=== PATIENT | male | born 1940 | race Caucasian/White ===

== ENCOUNTER 2017-09-26 09:46 | Inpatient (IN) | payer MEDICARE, BC ==
[2017-09-26] MEDS ORDERED: SODIUM CHLORIDE 0.9% 1,000 ML IV STA ×2 (10:24→13:06)
[2017-09-26] MEDS ORDERED: RX INFO: IV CONTRAST WAS GIVEN 1 EACH MISC MISCELLANE PRN ×2 (10:24→17:47)
--- NOTE | 2017-09-26 10:26 | ED ---
General Adult HPI - General Chief complaint: Back Pain/Injury Stated complaint: Back Pain Time Seen by Provider: 09/26/17 10:14 Source: patient Mode of arrival: wheelchair Limitations: no limitations - History of Present Illness Initial comments: Patient states that about 3 months ago he was shoveling some snow when he developed pain in the mid back. He states the pain has been pretty constant. He states that it is difficult to get around because of the pain. He states that it is causing him to have a decreased appetite. Patient denies any chest pain or shortness of breath. He has no neck pain. He feels generally weak, which is nonfocal. He is ambulatory. He states that he has not been eating or drinking much recently. He states that he has lost at least 20 pounds. He has some generalized abdominal pain which is nonfocal and nonradiating. Nothing makes any of his symptoms better or worse. He has taken no medication for symptoms. - Related Data Home Medications Medication Instructions Recorded Confirmed Acetaminophen Tab [Tylenol Tab] 500 - 1,000 mg PO Q6HR PRN 09/26/17 09/26/17 Acetaminophen-Codeine 300-30mg 1 - 2 tab PO Q4-6H PRN 09/26/17 09/26/17 [Tylenol w/codeine #3] Cimetidine [Tagamet] 300 mg PO BID 09/26/17 09/26/17 Cyclobenzaprine [Flexeril] 5 mg PO TID PRN 09/26/17 09/26/17 Allergies Allergy/AdvReac Type Severity Reaction Status Date / Time Penicillins Allergy Anaphylaxis Verified 09/26/17 10:12 Review of Systems ROS Statement: Those systems with pertinent positive or pertinent negative responses have been documented in the HPI. ROS Other: All systems not noted in ROS Statement are negative. Past Medical History Past Medical History: Diabetes Mellitus History of Any Multi-Drug Resistant Organisms: None Reported Additional Past Surgical History / Comment(s): left kidney removed, dedunal ulcer Past Psychological History: No Psychological Hx Reported Smoking Status: Former smoker Past Alcohol Use History: None Reported Past Drug Use History: None Reported General Exam Limitations: no limitations General appearance: alert, cachectic Head exam: Present: atraumatic, normocephalic, normal inspection Eye exam: Present: normal appearance, PERRL, EOMI. Absent: scleral icterus, conjunctival injection, periorbital swelling ENT exam: Present: normal exam, mucous membranes moist Neck exam: Present: normal inspection. Absent: tenderness, meningismus, lymphadenopathy Respiratory exam: Present: normal lung sounds bilaterally. Absent: respiratory distress, wheezes, rales, rhonchi, stridor Cardiovascular Exam: Present: regular rate, normal rhythm, normal heart sounds. Absent: systolic murmur, diastolic murmur, rubs, gallop, clicks GI/Abdominal exam: Present: soft, normal bowel sounds. Absent: distended, tenderness, guarding, rebound, rigid Extremities exam: Present: normal inspection, full ROM, normal capillary refill. Absent: tenderness, pedal edema, joint swelling, calf tenderness Back exam: Present: normal inspection Neurological exam: Present: alert, oriented X3, CN II-XII intact Psychiatric exam: Present: normal affect, normal mood Skin exam: Present: warm, dry, intact, normal color. Absent: rash Course Vital Signs 09/26/17 09:48 Temperature 97.0 F L Pulse Rate 119 H Respiratory 18 Rate Blood Pressure 136/76 O2 Sat by Pulse 100 Oximetry EKG Findings - EKG Comments: EKG Findings:: Twelve-lead EKG shows ventricular rate 85 bpm, normal OR interval and QRS complexes, no ST elevation or depression, interpreted by me as normal sinus rhythm. Medical Decision Making - Medical Decision Making Patient presents with pain, nausea and vomiting on reevaluation. He is having decreased bowel movements as well. His workup reveals pancreatic mass, ileus, possible metastatic disease. He will be admitted to the hospital. - Lab Data Result diagrams: 09/26/17 10:40 09/26/17 10:40 Lab Results 09/26/17 09/26/17 09/26/17 Range/Units 10:40 10:40 10:40 WBC 5.1 (3.8-10.6) k/uL RBC 4.08 L (4.30-5.90) m/uL Hgb 12.0 L (13.0-17.5) gm/dL Hct 35.1 L (39.0-53.0) % MCV 86.0 (80.0-100.0) fL MCH 29.4 (25.0-35.0) pg MCHC 34.2 (31.0-37.0) g/dL RDW 12.9 (11.5-15.5) % Plt Count 279 (150-450) k/uL Neutrophils % 82 % Lymphocytes % 9 % Monocytes % 6 % Eosinophils % 2 % Basophils % 0 % Neutrophils # 4.2 (1.3-7.7) k/uL Lymphocytes # 0.4 L (1.0-4.8) k/uL Monocytes # 0.3 (0-1.0) k/uL Eosinophils # 0.1 (0-0.7) k/uL Basophils # 0.0 (0-0.2) k/uL PT 10.0 (9.0-12.0) sec INR 1.0 (<1.2) APTT 24.8 (22.0-30.0) sec Sodium 135 L (137-145) mmol/L Potassium 4.2 (3.5-5.1) mmol/L Chloride 94 L (98-107) mmol/L Carbon Dioxide 25 (22-30) mmol/L Anion Gap 16 mmol/L BUN 23 H (9-20) mg/dL Creatinine 1.21 (0.66-1.25) mg/dL Est GFR (CKD-EPI)AfAm 68 (>60 ml/min/1.73 sqM) Est GFR (CKD-EPI)NonAf 58 (>60 ml/min/1.73 sqM) Glucose 110 H (74-99) mg/dL Calcium 9.9 (8.4-10.2) mg/dL Total Bilirubin 0.6 (0.2-1.3) mg/dL AST 19 (17-59) U/L ALT 24 (21-72) U/L Alkaline Phosphatase 74 (38-126) U/L Troponin I (0.000-0.034) ng/mL Total Protein 6.7 (6.3-8.2) g/dL Albumin 4.4 (3.5-5.0) g/dL Amylase 40 (30-110) U/L Lipase 40 (23-300) U/L Urine Color Urine Appearance (Clear) Urine pH (5.0-8.0) Ur Specific [place] (1.001-1.035) Urine Protein (Negative) Urine Glucose (UA) (Negative) Urine Ketones (Negative) Urine Blood (Negative) Urine Nitrite (Negative) Urine Bilirubin (Negative) Urine Urobilinogen (<2.0) mg/dL Ur Leukocyte Esterase (Negative) Urine RBC (0-5) /hpf Urine WBC (0-5) /hpf Ur Squamous Epith Cells (0-4) /hpf 09/26/17 09/26/17 Range/Units 10:40 11:08 WBC (3.8-10.6) k/uL RBC (4.30-5.90) m/uL Hgb (13.0-17.5) gm/dL Hct (39.0-53.0) % MCV (80.0-100.0) fL MCH (25.0-35.0) pg MCHC (31.0-37.0) g/dL RDW (11.5-15.5) % Plt Count (150-450) k/uL Neutrophils % % Lymphocytes % % Monocytes % % Eosinophils % % Basophils % % Neutrophils # (1.3-7.7) k/uL Lymphocytes # (1.0-4.8) k/uL Monocytes # (0-1.0) k/uL Eosinophils # (0-0.7) k/uL Basophils # (0-0.2) k/uL PT (9.0-12.0) sec INR (<1.2) APTT (22.0-30.0) sec Sodium (137-145) mmol/L Potassium (3.5-5.1) mmol/L Chloride (98-107) mmol/L Carbon Dioxide (22-30) mmol/L Anion Gap mmol/L BUN (9-20) mg/dL Creatinine (0.66-1.25) mg/dL Est GFR (CKD-EPI)AfAm (>60 ml/min/1.73 sqM) Est GFR (CKD-EPI)NonAf (>60 ml/min/1.73 sqM) Glucose (74-99) mg/dL Calcium (8.4-10.2) mg/dL Total Bilirubin (0.2-1.3) mg/dL AST (17-59) U/L ALT (21-72) U/L Alkaline Phosphatase (38-126) U/L Troponin I <0.012 (0.000-0.034) ng/mL Total Protein (6.3-8.2) g/dL Albumin (3.5-5.0) g/dL Amylase (30-110) U/L Lipase (23-300) U/L Urine Color Light Yellow Urine Appearance Clear (Clear) Urine pH 5.5 (5.0-8.0) Ur Specific [place] 1.010 (1.001-1.035) Urine Protein Negative (Negative) Urine Glucose (UA) Negative (Negative) Urine Ketones 1+ H (Negative) Urine Blood Small H (Negative) Urine Nitrite Negative (Negative) Urine Bilirubin Negative (Negative) Urine Urobilinogen <2.0 (<2.0) mg/dL Ur Leukocyte Esterase Negative (Negative) Urine RBC 1 (0-5) /hpf Urine WBC <1 (0-5) /hpf Ur Squamous Epith Cells <1 (0-4) /hpf Disposition Clinical Impression: Abdominal mass Disposition: ADMITTED IP TO THIS HOSP Condition: Fair Is patient prescribed a controlled substance at d/c from ED?: No Referrals: Joe Lopze DO [Primary Care Provider] - 1-2 days Time of Disposition: 12:48
[2017-09-26 10:58] LABS: Basophils % (A) 0 %; Eosinophils # (A) 0.1 k/uL (0-0.7); Eosinophils % (A) 2 %; HCT 35.1 % (39.0-53.0); Lymphocytes # (A) 0.4 k/uL (1.0-4.8); Lymphocytes % (A) 9 %; MCH 29.4 pg (25.0-35.0); MCHC 34.2 g/dL (31.0-37.0); Mean Platelet Volume 6.7; Monocytes # (A) 0.3 k/uL (0-1.0); Monocytes % (A) 6 %; Neutrophils # (A) 4.2 k/uL (1.3-7.7); Neutrophils % (A) 82 %; Platelet Count 279 k/uL (150-450); RBC 4.08 m/uL (4.30-5.90); RDW 12.9 % (11.5-15.5); WBC 5.1 k/uL (3.8-10.6)
[2017-09-26 11:08] LABS: Albumin 4.4 g/dL (3.5-5.0); Calcium 9.9 mg/dL (8.4-10.2); Partial Thromboplastin Time 24.8 sec (22.0-30.0); Potassium 4.2 mmol/L (3.5-5.1); Total Bilirubin 0.6 mg/dL (0.2-1.3); Total Protein 6.7 g/dL (6.3-8.2)
[2017-09-26 11:20] LABS: Appearance,Urine Clear (Clear); Bilirubin,Urine Negative (Negative); Blood,Urine Small (Negative); Color,Urine Light Yellow; Glucose,Urine (UA) Negative (Negative); Ketones,Urine 1+ (Negative); Leukocyte Esterase,Urine Negative (Negative); Nitrite,Urine Negative (Negative); PH, Urine 5.5 (5.0-8.0); Protein,Urine Negative (Negative); RBC,Urine 1 /hpf (0-5); Squamous Epithelial Cell,Urine <1 /hpf (0-4); Urobilinogen,Urine <2.0 mg/dL (<2.0); WBC,Urine <1 /hpf (0-5)
--- NOTE | 2017-09-26 12:06 | XR ---
EXAMINATION TYPE: XR chest 2V DATE OF EXAM: 09/26/2017 COMPARISON: NONE HISTORY: Shortness of breath TECHNIQUE: Frontal and lateral views of the chest are obtained. FINDINGS: Scattered senescent parenchymal changes noted. Hyperinflation compatible with COPD. No evidence for infiltrate. No evidence for atelectasis. Heart size is stable. Mediastinal structures are stable and grossly unremarkable. No evidence for hilar prominence. Degenerative changes dorsal spine. IMPRESSION: 1. No evidence for acute pulmonary disease.
--- NOTE | 2017-09-26 12:21 | CT ---
EXAMINATION TYPE: CT abdomen pelvis w con DATE OF EXAM: 09/26/2017 COMPARISON: NONE HISTORY: Abd pain, right flank pain and back pain. Status post left nephrectomy and known duodenal ul ceration CT DLP: 250.5 mGycm Automated exposure control for dose reduction was used. TECHNIQUE: Helical acquisition of images was performed from the lung bases through the pelvis. CONTRAST: Performed without Oral Contrast and with IV Contrast, patient injected with 80 mL of Isovue 300. FINDINGS: LUNG BASES: Moderate centrilobular emphysematous changes are seen. LIVER/GB: Gallbladder is hydropic measuring up to 10.0 cm x 4.1 cm. PANCREAS: Pancreatic tail is atrophic. Centimeters within the pancreatic body there is a 2.9 x 3.0 x 3.2 cm mass with mass effect on the portal splenic confluence and concern for splenic vein thrombosis on axial series 3 image 19 and sagittal series 9 image 60. There is also pancreatic ductal dilatatio n of 4 mm of the pancreatic tail and distal body. Surrounding inflammatory fat stranding is seen on s eries 3 image 21. Pancreatic head is impressed upon by the enlarged hydropic gallbladder and poorly d efined as is the uncinate process. SPLEEN: No significant abnormality is seen. No splenomegaly as the spleen measures 9.1 cm in cranioca udal dimension. ADRENALS: Adrenal glands are unremarkable KIDNEYS: Left kidney is surgically absent with prolapsed bowel extending into the surgical bed. 1.2 c m right renal cyst is noted in addition to a too small to accurately characterize right renal lesion. No hydronephrosis. FREE AIR: No free air is visualized. URINARY BLADDER: No significant abnormality is seen. ADENOPATHY: Evaluation for adenopathy is somewhat suboptimal given close approximation of multiple b owel loops and lack of intra-abdominal fat. No gross evidence of greater than 1 cm short axis lymph n odes are seen within the abdomen or pelvis. OSSEOUS STRUCTURES: Indeterminant 5 mm lytic area seen within the left iliac bone on series 8 image 46 and series 3 image 35. Similarly on the right and small lesions are seen on series 8 image 46 thes e could be degenerative in nature. BOWEL: The bowel is nondilated. There is moderate amount retained colonic stool. Small bowel feces s ign is seen within clusters small bowel loops in the left upper quadrant indicative of stasis. IMPRESSION: 1. 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 CONSIDERATIONS ARE FOR ACUTE PANCREATITIS AND ACUTE NECROTIZING FLUID COLLECTION/P SEUDOCYST ALTHOUGH THERE IS CONCERN FOR THE ALTERNATIVE CONSIDERATION OF CYSTIC PANCREATIC METASTASIS IN THIS PATIENT WITH A HISTORY OF LEFT NEPHRECTOMY. THIS IS OF CONCERN GIVEN THE DUCTAL DILATATION O F THE PANCREATIC TAIL AND CAN INDUCE SECONDARY PANCREATITIS. PRIMARY PANCREATIC NEOPLASM IS ALSO POSS IBLE. BIOPSY COULD BE CONSIDERED PERCUTANEOUSLY OR ENDOSCOPICALLY. 2. SUBCENTIMETER INDETERMINATE LYTIC LESIONS OF THE PELVIS THAT COULD REPRESENT OSTEOBLASTIC METASTAS IS OF RENAL CELL CARCINOMA OR SIMPLY DEGENERATIVE CHANGE. 3. HYDROPIC SIZE OF THE GALLBLADDER. CORRELATE WITH SERUM LABORATORY VALUES TO EVALUATE THE NEED FOR HIDA SCAN. 4. FINDINGS FAVORING SMALL BOWEL ILEUS.
[2017-09-26] MEDS ORDERED: MORPHINE SULFATE 4 MG/ML SYRINGE IV STA (12:58)
[2017-09-26] MEDS ORDERED: HYDROcodone/APAP 5-325MG 1 EACH TAB PO PRN (13:58)
[2017-09-26] MEDS ORDERED: NALOXONE 0.4 MG/ML 1 ML VIAL IV PRN (13:58)
--- NOTE | 2017-09-26 14:04 | P.HPIM ---
History of Present Illness H&P Date: 09/26/17 Chief Complaint: Abdominal pain, fatigue and weight loss The patient is a 77-year-old male that presented to the ER with chief complaints of ongoing mid abdominal pain over the last 3 weeks, progressively worsening was initially mild but now is moderate radiating to the back. Patient initially attributed his pain Muscle spasms that began from an injury sustained from using snowblower. The patient has tried [id number] Tylenol and was recently prescribed Tylenol 3's by his PCP without any improvement. Over the last 3 weeks, patient has noted increasing loss of appetite, nausea but denies vomiting, fatigue and weakness with associated 5 pound weight loss in the last 2 weeks. He denies any subjective fevers chills or night sweats, does report nausea and intermittent constipation. The patient denies any history of cancer, or any recent history of alcohol consumption or smoking. He denies any chest pain shortness of air, syncope palpitations or lower extremity swelling The patient reports having a left sided nephrectomy in 2013 at [facility] due to atrophic nonfunctional kidney. In the ER the patient had admission labs with the serum sodium of 135, hemoglobin of [address] abdomen and pelvis indicating a cystic pancreatic body mass with pancreatic duct dilatation, findings suggesting small bowel ileus Review of Systems All other 12 point review systems negative except per HPI Past Medical History Past Medical History: Diabetes Mellitus History of Any Multi-Drug Resistant Organisms: None Reported Additional Past Surgical History / Comment(s): left kidney removed, dedunal ulcer Past Psychological History: No Psychological Hx Reported Smoking Status: Former smoker Past Alcohol Use History: None Reported Past Drug Use History: None Reported Medications and Allergies Home Medications Medication Instructions Recorded Confirmed Type Acetaminophen Tab [Tylenol Tab] 500 - 1,000 mg PO Q6HR PRN 09/26/17 09/26/17 History Acetaminophen-Codeine 300-30mg 1 - 2 tab PO Q4-6H PRN 09/26/17 09/26/17 History [Tylenol w/codeine #3] Cimetidine [Tagamet] 300 mg PO BID 09/26/17 09/26/17 History Cyclobenzaprine [Flexeril] 5 mg PO TID PRN 09/26/17 09/26/17 History Allergies Allergy/AdvReac Type Severity Reaction Status Date / Time Penicillins Allergy Anaphylaxis Verified 09/26/17 10:12 Physical Exam Vitals: Vital Signs Temp Pulse Resp BP Pulse Ox 09/26/17 13:36 99.0 F 89 20 160/63 96 09/26/17 12:53 87 20 164/76 99 09/26/17 10:53 80 20 164/84 98 09/26/17 09:48 97.0 F L 119 H 18 136/76 100 Intake and Output 09/25/17 09/26/17 09/26/17 22:59 06:59 14:59 Output Total 500 Balance -500 Output: Urine 500 Other: Weight 39.916 kg Constitutional: No acute distress, conversant, pleasant, anorexic Eyes: Anicteric sclerae, moist conjunctiva, no lid-lag, PERRLA, sunken orbits HENMT: NC/AT,Oropharynx clear, no erythema, exudates, bilateral temporal wasting Neck:Supple, FROM, no masses, or JVD, No carotid bruits; No thyromegaly Lungs: Clear to auscultation, Clear to percussion, Normal respiratory effort, no accessory muscle use Cardiovascular: Heart regular in rate and rhythm, No murmurs, gallops, or rubs no peripheral edema Abdominal: Soft tender to palpation in the midepigastrium, non distended, no guarding, no rebound or rigidity, Normoactive bowel sounds No hepatomegaly, No splenomegaly, No palpable mass No abdominal wall hernia noted Skin: Normal temperature, tone, texture, turgor, No induration No subcutaneous nodules, No rash, lesions, No ulcers Extremities:No digital cyanosis No clubbing, Pedal pulses intact and symmetrical Radial pulses intact and symmetrical Normal gait and station, No calf tenderness Psychiatric: Alert and oriented to person, place and time, Appropriate affect Intact judgement Neuro: Muscles Strength 5/5 in all 4 extremities, Sensation to light touch grossly present throughout, Cranial nerves II-XII grossly intact. No focal sensory deficits Results CBC & Chem 7: 09/26/17 10:40 09/26/17 10:40 Labs: Abnormal Lab Results - Last 24 Hours (Table) 09/26/17 09/26/17 09/26/17 Range/Units 10:40 10:40 11:08 RBC 4.08 L (4.30-5.90) m/uL Hgb 12.0 L (13.0-17.5) gm/dL Hct 35.1 L (39.0-53.0) % Lymphocytes # 0.4 L (1.0-4.8) k/uL Sodium 135 L (137-145) mmol/L Chloride 94 L (98-107) mmol/L BUN 23 H (9-20) mg/dL Glucose 110 H (74-99) mg/dL Urine Ketones 1+ H (Negative) Urine Blood Small H (Negative) Assessment and Plan (1) Pancreatic mass Current Visit: Yes Status: Acute Code(s): K86.9 - DISEASE OF PANCREAS, UNSPECIFIED SNOMED Code(s): 177263340 (2) Abdominal pain Current Visit: Yes Status: Acute Code(s): R10.9 - UNSPECIFIED ABDOMINAL PAIN SNOMED Code(s): 79069457 (3) Hypernatremia Current Visit: Yes Status: Acute Code(s): E87.0 - HYPEROSMOLALITY AND HYPERNATREMIA SNOMED Code(s): 55907206 (4) Unintentional weight loss Current Visit: Yes Status: Acute Code(s): R63.4 - ABNORMAL WEIGHT LOSS SNOMED Code(s): 004440922 Plan: Patient is admitted for abdominal pain anticipate a greater than [address] evidence of pancreatic mass concerning for primary neoplasm versus metastatic Disease. Treat supportively with IV narcotics and antiemetics and IV fluids. We'll obtain consultation with general surgery, GI and hematology. Place patient on DVT and GI prophylaxis. And continue to follow his clinical course
--- NOTE | 2017-09-26 14:32 | P.GSCN ---
History of Present Illness Consult date: 09/26/17 Reason for Consult: Cystic pancreatic mass History of present illness: This is a 77-year-old male who is admitted to the hospital complaints of epigastric and back pain. Patient awake CAT scan and was found to have a large cystic pancreatic mass. He also has a hydropic gallbladder. Patient states that over the last 3 months he's lost approximately 15 pounds. His family states that he has had complaints of back pain for the last 3 months. The patient appears to be cachectic. Past Medical History Past Medical History: Osteoarthritis (OA) Additional Past Medical History / Comment(s): Hypoglycemia-eats frequent small meals, 1983 duodenal ulcer with surgery, 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 History of Any Multi-Drug Resistant Organisms: None Reported Additional Past Surgical History / Comment(s): left kidney removed, doudenal ulcer repair, colonoscopy with 2 benign polyps removed. Additional Past Anesthesia/Blood Transfusion Reaction / Comm: Pt has been hypotensive after surgery. Smoking Status: Former smoker - Past Family History Father Family Medical History: Cancer Additional Family Medical History / Comment(s): Father had back problems from an injury. He had cancer in his lymph nodes that went to his brain. Mother Additional Family Medical History / Comment(s): Mother had mental health problems, possible schizophrenia. Medications and Allergies Home Medications Medication Instructions Recorded Confirmed Type Acetaminophen Tab [Tylenol Tab] 500 - 1,000 mg PO Q6HR PRN 09/26/17 09/26/17 History Acetaminophen-Codeine 300-30mg 1 - 2 tab PO Q4-6H PRN 09/26/17 09/26/17 History [Tylenol w/codeine #3] Cimetidine [Tagamet] 300 mg PO BID 09/26/17 09/26/17 History Cyclobenzaprine [Flexeril] 5 mg PO TID PRN 09/26/17 09/26/17 History Allergies Allergy/AdvReac Type Severity Reaction Status Date / Time Penicillins Allergy Anaphylaxis Verified 09/26/17 10:12 Surgical - Exam Vital Signs Temp Pulse Resp BP Pulse Ox 97.0 F L 119 H 18 136/76 100 09/26/17 09:48 09/26/17 09:48 09/26/17 09:48 09/26/17 09:48 09/26/17 09:48 - General moderate distress, cachectic, chronically ill - Eyes PERRL - ENT normal pinna - Neck no masses - Respiratory normal expansion - Cardiovascular Rhythm: regular - Abdomen Mild epigastric pain. There is no rebound or guarding. Abdomen: soft Results - Labs 09/26/17 10:40 09/26/17 10:40 Abnormal Lab Results - Last 24 Hours (Table) 09/26/17 09/26/17 09/26/17 Range/Units 10:40 10:40 11:08 RBC 4.08 L (4.30-5.90) m/uL Hgb 12.0 L (13.0-17.5) gm/dL Hct 35.1 L (39.0-53.0) % Lymphocytes # 0.4 L (1.0-4.8) k/uL Sodium 135 L (137-145) mmol/L Chloride 94 L (98-107) mmol/L BUN 23 H (9-20) mg/dL Glucose 110 H (74-99) mg/dL Urine Ketones 1+ H (Negative) Urine Blood Small H (Negative) Diabetes panel 09/26/17 Range/Units 10:40 Sodium 135 L (137-145) mmol/L Potassium 4.2 (3.5-5.1) mmol/L Chloride 94 L (98-107) mmol/L Carbon Dioxide 25 (22-30) mmol/L BUN 23 H (9-20) mg/dL Creatinine 1.21 (0.66-1.25) mg/dL Glucose 110 H (74-99) mg/dL Calcium 9.9 (8.4-10.2) mg/dL AST 19 (17-59) U/L ALT 24 (21-72) U/L Alkaline Phosphatase 74 (38-126) U/L Total Protein 6.7 (6.3-8.2) g/dL Albumin 4.4 (3.5-5.0) g/dL Calcium panel 09/26/17 Range/Units 10:40 Calcium 9.9 (8.4-10.2) mg/dL Albumin 4.4 (3.5-5.0) g/dL Pituitary panel 09/26/17 Range/Units 10:40 Sodium 135 L (137-145) mmol/L Potassium 4.2 (3.5-5.1) mmol/L Chloride 94 L (98-107) mmol/L Carbon Dioxide 25 (22-30) mmol/L BUN 23 H (9-20) mg/dL Creatinine 1.21 (0.66-1.25) mg/dL Glucose 110 H (74-99) mg/dL Calcium 9.9 (8.4-10.2) mg/dL Adrenal panel 09/26/17 Range/Units 10:40 Sodium 135 L (137-145) mmol/L Potassium 4.2 (3.5-5.1) mmol/L Chloride 94 L (98-107) mmol/L Carbon Dioxide 25 (22-30) mmol/L BUN 23 H (9-20) mg/dL Creatinine 1.21 (0.66-1.25) mg/dL Glucose 110 H (74-99) mg/dL Calcium 9.9 (8.4-10.2) mg/dL Total Bilirubin 0.6 (0.2-1.3) mg/dL AST 19 (17-59) U/L ALT 24 (21-72) U/L Alkaline Phosphatase 74 (38-126) U/L Total Protein 6.7 (6.3-8.2) g/dL Albumin 4.4 (3.5-5.0) g/dL - Imaging CT scan - abdomen: image reviewed (3 cm cystic pancreatic mass) Assessment and Plan Assessment: 3 cm cystic pancreatic mass. The patient's symptoms and findings are suspicious for a pancreatic tumor. The patient will need to undergo CT-guided biopsy. Patient be scheduled for interventional radiology to perform the biopsy. In the meantime he'll he provided supportive care.
[2017-09-26 14:52] VITALS: BMI 15.5
[2017-09-26] MEDS: SODIUM CHLORIDE 0.9% 1,000 ML IV SCH (16:13)
[2017-09-26] MEDS: ONDANSETRON 4 MG/2 ML VIAL IVP PRN (17:07)
--- NOTE | 2017-09-26 17:47 | P.CONS ---
History of Present Illness - Reason for Consult Consult date: 09/26/17 pancreatic mass. Intractable pain - History of Present Illness The patient is a 77-year-old white male, in good health at baseline. The patient had developed upper mid abdominal pain about 3 weeks ago. Initially this was mild and intermittent. It has progressively gotten more severe and persistent. Pain is aggravated by eating but is also present otherwise. On the patient over the last 2 weeks has noted marked increase in appetite, as well as nausea off and on. In addition he's been constipated at least for the last 3-4 days. Due to the progression of the above symptoms, he came into the emergency room. CT of the abdomen and pelvis revealed evidence of a cystic mass in the pancreatic body, and encroaching on the splenic vein with possible thrombosis of the splenic vein. In addition small bowel ileus was noted. Consult was therefore placed for further evaluation and recommendations. The patient denied any personal history of malignancy. He is a nonsmoker and quit alcohol more than 40 years ago. No history of pancreatitis. Review of Systems Constitutional: Reports anorexia, Reports chronic pain, Reports poor appetite, Reports weight loss (5-6 lbs) Eyes: denies blurred vision, denies pain Ears: deny: decreased hearing, ear discharge, earache, tinnitus Ears, nose, mouth and throat: Denies headache, Denies sore throat Cardiovascular: Reports decreased exercise tolerance Respiratory: Denies cough Gastrointestinal: Reports abdominal pain, Reports constipation, Reports loss of appetite, Reports nausea Genitourinary: Reports as per HPI Musculoskeletal: Reports muscle weakness, Denies myalgias Integumentary: Denies pruritus, Denies rash Neurological: Reports weakness, Denies numbness Psychiatric: Denies anxiety, Denies depression Endocrine: Reports fatigue, Reports weight change Hematologic/Lymphatic: Reports as per HPI Past Medical History Past Medical History: Osteoarthritis (OA) Additional Past Medical History / Comment(s): Hypoglycemia-eats frequent small meals, 1983 duodenal ulcer with surgery, 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 History of Any Multi-Drug Resistant Organisms: None Reported Additional Past Surgical History / Comment(s): left kidney removed, doudenal ulcer repair, colonoscopy with 2 benign polyps removed. Additional Past Anesthesia/Blood Transfusion Reaction / Comm: Pt has been hypotensive after surgery. Smoking Status: Former smoker - Past Family History Father Family Medical History: Cancer Additional Family Medical History / Comment(s): Father had back problems from an injury. He had cancer in his lymph nodes that went to his brain. Mother Additional Family Medical History / Comment(s): Mother had mental health problems, possible schizophrenia. Medications and Allergies Home Medications Medication Instructions Recorded Confirmed Type Acetaminophen Tab [Tylenol Tab] 500 - 1,000 mg PO Q6HR PRN 09/26/17 09/26/17 History Acetaminophen-Codeine 300-30mg 1 - 2 tab PO Q4-6H PRN 09/26/17 09/26/17 History [Tylenol w/codeine #3] Cimetidine [Tagamet] 300 mg PO BID 09/26/17 09/26/17 History Cyclobenzaprine [Flexeril] 5 mg PO TID PRN 09/26/17 09/26/17 History Allergies Allergy/AdvReac Type Severity Reaction Status Date / Time Penicillins Allergy Anaphylaxis Verified 09/26/17 10:12 Physical Exam Vitals: Vital Signs Temp Pulse Pulse Resp BP BP Pulse Ox 09/26/17 14:32 97.7 F 98 12 185/81 98 09/26/17 13:36 99.0 F 89 20 160/63 96 09/26/17 12:53 87 20 164/76 99 09/26/17 10:53 80 20 164/84 98 09/26/17 09:48 97.0 F L 119 H 18 136/76 100 Intake and Output 09/26/17 09/26/17 09/26/17 06:59 14:59 22:59 Output Total 500 Balance -500 Output: Urine 500 Other: Voiding Method Toilet Urinal # Voids 0 Weight 39.916 kg - Constitutional General appearance: no acute distress - EENT Eyes: EOMI, PERRLA ENT: hearing grossly normal, normal oropharynx - Neck Neck: no lymphadenopathy Thyroid: bilateral: normal size - Respiratory Respiratory: bilateral: CTA - Cardiovascular Rhythm: regular Heart sounds: normal: S1, S2 - Gastrointestinal General gastrointestinal: normal bowel sounds, soft Localized gastrointestinal: tender: epigastric periumbilical - Integumentary Integumentary: normal - Neurologic Neurologic: CNII-XII intact - Musculoskeletal Musculoskeletal: generalized weakness, strength equal bilaterally - Psychiatric Psychiatric: A&O x's 3, appropriate affect, intact judgment & insight Results CBC & Chem 7: 09/26/17 10:40 09/26/17 10:40 Labs: Abnormal Lab Results - Last 24 Hours (Table) 09/26/17 09/26/17 09/26/17 Range/Units 10:40 10:40 11:08 RBC 4.08 L (4.30-5.90) m/uL Hgb 12.0 L (13.0-17.5) gm/dL Hct 35.1 L (39.0-53.0) % Lymphocytes # 0.4 L (1.0-4.8) k/uL Sodium 135 L (137-145) mmol/L Chloride 94 L (98-107) mmol/L BUN 23 H (9-20) mg/dL Glucose 110 H (74-99) mg/dL Urine Ketones 1+ H (Negative) Urine Blood Small H (Negative) Chest x-ray: report reviewed CT scan - abdomen: report reviewed CT scan - pelvis: report reviewed Assessment and Plan (1) Pancreatic mass Narrative/Plan: The patient is presented with abdominal symptoms as noted. CT scan of the abdomen and pelvis showed a pancreatic mass in the body, 3.2 cm in maximal dimension. The clinical picture is highly suspicious for malignancy, with a mass encroaching on the portal splenic confluence. His abdominal pain is also suspicious for mass effect on the celiac plexus. The clinical impression, and implications were discussed in detail with him and multiple family members. CT of the abdomen and pelvis does not show any obvious metastatic disease though the exam is somewhat limited because of inflammatory changes around the pancreatic head, as well as loss of bowel. The next step would be to get a tissue diagnosis. A percutaneous biopsy has been ordered with IR. This would not be the preferred more, as this is technically quite difficult especially with dilated bowel loops and surrounding inflammation. With a cystic-type mass risk of a nondiagnostic procedure is higher. In addition, the FNA would not provide any additional information. The case was therefore discussed with the family, as well as with the admitting service. I would prefer that the patient have an endoscopic ultrasound, which would enable a tissue diagnosis, as well as local and lymph node staging. Since this is not available locally, it will be arranged by the office next week at a tertiary institution. If the patient's symptoms are controlled, this can be done as an outpatient. CT scan of the chest will be ordered for additional staging. I will also check tumor markers. Current Visit: Yes Status: Acute Code(s): K86.9 - DISEASE OF PANCREAS, UNSPECIFIED SNOMED Code(s): 776377420 (2) Abdominal pain Narrative/Plan: The patient is currently on [place] and morphine. As these are both short- acting medications, I will stop the [place] and utilize morphine. The patient noted increased constipation with Tylenol 3 and therefore [place] may be more prone to cause the same. Depending on his morphine utilization, dose will be adjusted and consideration given to adding a long-acting formulation, if needed. If patient's pain control, and side effects from pain medications are not optimal, the pain service can be consulted for a celiac plexus block Current Visit: Yes Status: Acute Code(s): R10.9 - UNSPECIFIED ABDOMINAL PAIN SNOMED Code(s): 72606352 (3) Ileus Narrative/Plan: The patient does not have evidence of marilu obstruction. The ileus is most likely due to the effect of his pain, as well as pain medications and constipation. The patient will be started on Colace. Surgery is following. I will also add Reglan twice a day to try to improve bowel motility. Current Visit: Yes Status: Acute Code(s): K56.7 - ILEUS, UNSPECIFIED SNOMED Code(s): 760495125
[2017-09-26] MEDS: MORPHINE SULFATE 4 MG/ML SYRINGE IV PRN ×2 (18:42→23:09)
[2017-09-26] MEDS: METOCLOPRAMIDE 10 MG TAB PO SCH (20:07)
[2017-09-26] MEDS: DOCUSATE 100 MG CAP PO SCH (20:07)
[2017-09-26] MEDS: FAMOTIDINE 20 MG TAB PO SCH (21:47)
[2017-09-27] MEDS: MORPHINE SULFATE 4 MG/ML SYRINGE IV PRN ×5 (02:58→23:01)
[2017-09-27 06:44] LABS: Basophils % (A) 0 %; Eosinophils # (A) 0.1 k/uL (0-0.7); Eosinophils % (A) 3 %; HCT 31.7 % (39.0-53.0); HGB 10.4 gm/dL (13.0-17.5); Lymphocytes # (A) 0.6 k/uL (1.0-4.8); Lymphocytes % (A) 12 %; MCH 29.4 pg (25.0-35.0); MCHC 32.8 g/dL (31.0-37.0); MCV 89.7 fL (80.0-100.0); Mean Platelet Volume 6.6; Monocytes # (A) 0.4 k/uL (0-1.0); Monocytes % (A) 7 %; Neutrophils # (A) 3.9 k/uL (1.3-7.7); Neutrophils % (A) 76 %; Platelet Count 253 k/uL (150-450); RBC 3.54 m/uL (4.30-5.90); RDW 13.2 % (11.5-15.5); WBC 5.2 k/uL (3.8-10.6)
[2017-09-27 07:01] LABS: Albumin 3.7 g/dL (3.5-5.0); Calcium 9.4 mg/dL (8.4-10.2); Potassium 4.2 mmol/L (3.5-5.1); Total Bilirubin 0.5 mg/dL (0.2-1.3); Total Protein 5.9 g/dL (6.3-8.2)
[2017-09-27] MEDS: ONDANSETRON 4 MG/2 ML VIAL IVP PRN (07:04)
[2017-09-27] MEDS: FAMOTIDINE 20 MG TAB PO SCH ×2 (07:46→20:20)
[2017-09-27] MEDS: ENOXAPARIN 40 MG/0.4 ML SYRINGE SQ SCH (07:46)
[2017-09-27] MEDS: METOCLOPRAMIDE 10 MG TAB PO SCH ×2 (07:47→17:40)
[2017-09-27] MEDS: DOCUSATE 100 MG CAP PO SCH ×2 (07:47→20:20)
--- NOTE | 2017-09-27 09:36 | P.PN ---
Subjective Progress Note Date: 09/27/17 Principal diagnosis: Pancreatic lesion Patient says he feels better. Less abdominal pain. No nausea or vomiting. Tolerating diet thus far. CA-19-9 did come back elevated. Oncology evaluation noted. Objective - Vital Signs Vital signs: Vital Signs Temp 97.6 F 09/27/17 04:00 Pulse 85 09/27/17 08:00 Resp 16 09/27/17 08:00 BP 155/74 09/27/17 04:00 Pulse Ox 95 09/27/17 04:00 Intake & Output 09/26/17 09/27/17 09/27/17 18:59 06:59 18:59 Output Total 500 450 Balance -500 -450 Weight 39.916 kg 39.916 kg Output: Urine 500 450 Other: Voiding Method Toilet Toilet Toilet Urinal Urinal Urinal # Voids 0 1 - Exam Abdomen: Soft, nontender, nondistended - Labs CBC & Chem 7: 09/27/17 06:22 09/27/17 06:22 Labs: Abnormal Lab Results - Last 24 Hours (Table) 09/26/17 09/26/17 09/26/17 Range/Units 10:40 10:40 10:40 RBC 4.08 L (4.30-5.90) m/uL Hgb 12.0 L (13.0-17.5) gm/dL Hct 35.1 L (39.0-53.0) % Lymphocytes # 0.4 L (1.0-4.8) k/uL Sodium 135 L (137-145) mmol/L Chloride 94 L (98-107) mmol/L BUN 23 H (9-20) mg/dL Glucose 110 H (74-99) mg/dL Total Protein (6.3-8.2) g/dL CA 19-9 Antigen 273.8 H (0.0-34.9) U/mL Urine Ketones (Negative) Urine Blood (Negative) 09/26/17 09/27/17 09/27/17 Range/Units 11:08 06:22 06:22 RBC 3.54 L (4.30-5.90) m/uL Hgb 10.4 L (13.0-17.5) gm/dL Hct 31.7 L (39.0-53.0) % Lymphocytes # 0.6 L (1.0-4.8) k/uL Sodium 135 L (137-145) mmol/L Chloride (98-107) mmol/L BUN (9-20) mg/dL Glucose 103 H (74-99) mg/dL Total Protein 5.9 L (6.3-8.2) g/dL CA 19-9 Antigen (0.0-34.9) U/mL Urine Ketones 1+ H (Negative) Urine Blood Small H (Negative) Assessment and Plan (1) Pancreatic mass Narrative/Plan: Continue advancing diet as tolerated. Agree with plans for outpatient endoscopic ultrasound. Current Visit: Yes Status: Acute Code(s): K86.9 - DISEASE OF PANCREAS, UNSPECIFIED SNOMED Code(s): 485424954
--- NOTE | 2017-09-27 12:29 | CT ---
EXAMINATION TYPE: CT chest w con DATE OF EXAM: 09/27/2017 COMPARISON: NONE HISTORY: Patient has no chest complaints at time of service. Pancreatic mass. CT DLP: 122.3 mGycm Automated exposure control for dose reduction was used. CONTRAST: CT scan of the chest is performed with IV Contrast, patient injected with 80 mL of Isovue 300. FINDINGS: There is apical scarring in both lungs, worse on the right than the left. There are underly ing changes of emphysema. There is a 5.3 mm noncalcified peripheral nodule along the major fissure on the left, best seen on image 39. No other definite parenchymal nodule is seen. There is no significant axillary, mediastinal or hilar adenopathy. There is no pleural or pericardial fluid. The heart is not enlarged. Within the abdomen, the gallbladder is distended. The remainder the visualized upper abdomen is unrem arkable. No bony lesion is seen. IMPRESSION: 1. Emphysematous change. 2. Asymmetric apical pleural thickening. 3. SOLITARY LEFT-SIDED PULMONARY NODULE. THREE-MONTH FOLLOW-UP WOULD BE SUGGESTED.
--- NOTE | 2017-09-27 13:43 | P.PN ---
Subjective Progress Note Date: 09/27/17 Principal diagnosis: Patient reported that his abdominal pain and mid back pain is fairly well controlled with the medications. He stated that sometime it get worse and manages worse it goes up to 7/10 in intensity. Patient denies radiation other than going to the back of the spine. Patient also reported that he is having some constipation although he is on docusate 100 mg twice daily which is not helping him. Patient was referred for interventional radiology procedure CT- guided biopsy of the pancreatic mass but it was suggested for patient to have endoscopic ultrasound and biopsy of the pancreatic lesion. This procedure cannot be offered at this facility so the plan is for patient and continues to improve will be transferred to higher center for this procedure. Patient also had CT thorax done today which reported as emphysema, apical pleural thickening , solitary left main nodule and three-month follow-up was recommended. Patient denies chest pain, palpitation, nausea, dizziness, deficits, fever, chills, vomiting and denies rest of the review of system. Patient reports that he is eating better and tolerating his diet better than before. Nurses reported no other issues with him. Objective - Vital Signs Vital signs: Vital Signs Temp 97.6 F 09/27/17 04:00 Pulse 85 09/27/17 08:00 Resp 16 09/27/17 08:00 BP 155/74 09/27/17 04:00 Pulse Ox 95 09/27/17 04:00 Intake & Output 09/26/17 09/27/17 09/27/17 18:59 06:59 18:59 Output Total 500 450 Balance -500 -450 Weight 39.916 kg 39.916 kg Output: Urine 500 450 Other: Voiding Method Toilet Toilet Toilet Urinal Urinal Urinal # Voids 0 1 - Constitutional General appearance: Present: cooperative, no acute distress, thin - EENT Eyes: Present: EOMI, normal appearance ENT: Present: hearing grossly normal - Neck Neck: Present: normal ROM. Absent: lymphadenopathy, rigidity, stridor, thyromegaly - Respiratory Respiratory: bilateral: CTA, diminished, negative: dullness, rales, rhonchi, wheezing, prolonged expiration, prolonged inspiration - Cardiovascular Rhythm: regular Heart sounds: normal: S1, S2 Abnormal Heart Sounds: Absent: systolic murmur, diastolic murmur, rub, S3 Gallop , S4 Gallop, click - Gastrointestinal General gastrointestinal: Present: normal bowel sounds, soft. Absent: distended , hepatomegaly, rigid - Neurologic Neurologic: Present: CNII-XII intact. Absent: focal deficits - Psychiatric Psychiatric: Present: A&O x's 3, appropriate affect, intact judgment & insight - Labs CBC & Chem 7: 09/27/17 06:22 09/27/17 06:22 Labs: Abnormal Lab Results - Last 24 Hours (Table) 09/26/17 09/27/17 09/27/17 Range/Units 10:40 06:22 06:22 RBC 3.54 L (4.30-5.90) m/uL Hgb 10.4 L (13.0-17.5) gm/dL Hct 31.7 L (39.0-53.0) % Lymphocytes # 0.6 L (1.0-4.8) k/uL Sodium 135 L (137-145) mmol/L Glucose 103 H (74-99) mg/dL Total Protein 5.9 L (6.3-8.2) g/dL CA 19-9 Antigen 273.8 H (0.0-34.9) U/mL - Imaging and Cardiology CT scan - abdomen: report reviewed, image reviewed CT scan - chest: report reviewed Assessment and Plan (1) Constipation Current Visit: Yes Status: Acute Priority: High Code(s): K59.00 - CONSTIPATION, UNSPECIFIED SNOMED Code(s): 27815175 (2) Abdominal mass Current Visit: Yes Status: Acute Priority: High Code(s): R19.00 - INTRA- ABD AND PELVIC SWELLING, MASS AND LUMP, UNSP SITE SNOMED Code(s): 240607951 (3) Abdominal pain Current Visit: Yes Status: Acute Priority: High Code(s): R10.9 - UNSPECIFIED ABDOMINAL PAIN SNOMED Code(s): 31238323 (4) Hypernatremia Current Visit: Yes Status: Acute Priority: Medium Code(s): E87.0 - HYPEROSMOLALITY AND HYPERNATREMIA SNOMED Code(s): 74470169 (5) Ileus Current Visit: Yes Status: Acute Priority: High Code(s): K56.7 - ILEUS, UNSPECIFIED SNOMED Code(s): 177742592 (6) Pancreatic mass Current Visit: Yes Status: Acute Priority: High Code(s): K86.9 - DISEASE OF PANCREAS, UNSPECIFIED SNOMED Code(s): 340983396 (7) Unintentional weight loss Current Visit: Yes Status: Acute Priority: High Code(s): R63.4 - ABNORMAL WEIGHT LOSS SNOMED Code(s): 236175107 Plan: Patient's Colace will be discontinued and he will be started on senna-S two tablets at night-time with full glass of water. This medication will be held for loose stools. Patient was encouraged to drink and sure and complete his meal every day and every meal supply to improve his nutritional status. Patient is aware of that he might be needing transfer to health centers for endoscopic ultrasound and biopsy of the pancreatic mass. Patient been will be managed with continuation of as needed IV morphine and I will add MS Contin 15 mg twice daily as a baseline pain management. Patient will be continued on rest of the management for his chronic stable medical problems.
[2017-09-27] MEDS: SODIUM CHLORIDE 0.9% 1,000 ML IV SCH (15:21)
[2017-09-28] MEDS: MORPHINE SULFATE 4 MG/ML SYRINGE IV PRN ×2 (03:27→08:26)
[2017-09-28] MEDS: METOCLOPRAMIDE 10 MG TAB PO SCH ×2 (08:27→17:05)
[2017-09-28] MEDS: ENOXAPARIN 40 MG/0.4 ML SYRINGE SQ SCH (08:27)
[2017-09-28] MEDS: FAMOTIDINE 20 MG TAB PO SCH ×2 (08:27→20:29)
[2017-09-28] MEDS: DOCUSATE 100 MG CAP PO SCH (08:27)
[2017-09-28 09:42] LABS: HCT 29.9 % (39.0-53.0); HGB 9.8 gm/dL (13.0-17.5); MCH 29.4 pg (25.0-35.0); MCHC 32.8 g/dL (31.0-37.0); MCV 89.7 fL (80.0-100.0); Mean Platelet Volume 7.5; Platelet Count 186 k/uL (150-450); RBC 3.34 m/uL (4.30-5.90); RDW 13.1 % (11.5-15.5); WBC 5.3 k/uL (3.8-10.6)
[2017-09-28 09:59] LABS: Calcium 9.2 mg/dL (8.4-10.2); Potassium 4.1 mmol/L (3.5-5.1)
--- NOTE | 2017-09-28 10:04 | P.PN ---
Subjective Progress Note Date: 09/28/17 Principal diagnosis: Pancreatic lesion Patient doing well. Tolerating diet. Denies abdominal pain. Objective - Vital Signs Vital signs: Vital Signs Temp 98.9 F 09/28/17 06:17 Pulse 101 H 09/28/17 06:17 Resp 16 09/28/17 06:17 BP 135/60 09/28/17 06:17 Pulse Ox 96 09/28/17 06:17 Intake & Output 09/27/17 09/28/17 09/28/17 18:59 06:59 18:59 Intake Total 600 175 Output Total 500 Balance 600 -325 Weight 39.916 kg Intake: Intake, IV Titration 600 175 Amount Sodium Chloride 0.9% 1, 175 000 ml @ 50 mls/hr IV . Q20H CYRIL Rx#:[id number] Sodium Chloride 0.9% 1, 600 000 ml @ 75 mls/hr IV . [id number] STA Rx#:[id number] Output: Urine 500 Other: Voiding Method Toilet Toilet Toilet Urinal Urinal Urinal # Voids 1 - Exam Abdomen: Soft, nontender, nondistended - Labs CBC & Chem 7: 09/28/17 09:31 09/27/17 06:22 Labs: Abnormal Lab Results - Last 24 Hours (Table) 09/28/17 Range/Units 09:31 RBC 3.34 L (4.30-5.90) m/uL Hgb 9.8 L (13.0-17.5) gm/dL Hct 29.9 L (39.0-53.0) % Assessment and Plan (1) Pancreatic mass Narrative/Plan: Continue encouraging oral intake. Await oncology plans for outpatient endoscopic ultrasound. Current Visit: Yes Status: Acute Priority: High Code(s): K86.9 - DISEASE OF PANCREAS, UNSPECIFIED SNOMED Code(s): 159866644
--- NOTE | 2017-09-28 11:39 | P.PN ---
Subjective Progress Note Date: 09/28/17 Principal diagnosis: Pt. reported that his abdominal pain is fairly controlled with I/V Morphine, was supposed to have oral MS Contin from last night but order didn't went through. Dr. Gonzales's recs appreciated, nurse reported that pt. is still constipated and is only taking his ENSURE supplements 50% per serving. Pt. reports no N/V, F/C, CP, Diaphoresis, Dizziness, Palpitation and denies rest of the ROS. Objective - Vital Signs Vital signs: Vital Signs Temp 98.9 F 09/28/17 06:17 Pulse 101 H 09/28/17 06:17 Resp 16 09/28/17 06:17 BP 135/60 09/28/17 06:17 Pulse Ox 96 09/28/17 06:17 Intake & Output 09/27/17 09/28/17 09/28/17 18:59 06:59 18:59 Intake Total 600 175 Output Total 500 Balance 600 -325 Weight 39.916 kg Intake: Intake, IV Titration 600 175 Amount Sodium Chloride 0.9% 1, 175 000 ml @ 50 mls/hr IV . Q20H CYRIL Rx#:[id number] Sodium Chloride 0.9% 1, 600 000 ml @ 75 mls/hr IV . [id number] STA Rx#:[id number] Output: Urine 500 Other: Voiding Method Toilet Toilet Toilet Urinal Urinal Urinal # Voids 1 - Constitutional General appearance: Present: cooperative, no acute distress, thin - EENT Eyes: Present: EOMI - Neck Neck: Present: normal ROM. Absent: lymphadenopathy, rigidity, stridor, thyromegaly - Respiratory Respiratory: bilateral: CTA, negative: diminished, dullness, rales, rhonchi, wheezing, prolonged expiration, prolonged inspiration - Cardiovascular Rhythm: regular Heart sounds: normal: S1, S2 Abnormal Heart Sounds: Absent: systolic murmur, diastolic murmur, rub, S3 Gallop , S4 Gallop, click - Peripheral pulses radial pulse Peripheral Pulses: bilateral: Normal - Gastrointestinal General gastrointestinal: Present: normal bowel sounds, scaphoid, soft. Absent : distended, rigid, tenderness - Neurologic Neurologic: Present: CNII-XII intact. Absent: focal deficits - Musculoskeletal Musculoskeletal: Present: generalized weakness, strength equal bilaterally - Psychiatric Psychiatric: Present: A&O x's 3, appropriate affect, intact judgment & insight - Labs CBC & Chem 7: 09/28/17 09:31 09/28/17 09:31 Labs: Abnormal Lab Results - Last 24 Hours (Table) 09/28/17 09/28/17 Range/Units 09:31 09:31 RBC 3.34 L (4.30-5.90) m/uL Hgb 9.8 L (13.0-17.5) gm/dL Hct 29.9 L (39.0-53.0) % Sodium 136 L (137-145) mmol/L Chloride 96 L (98-107) mmol/L Glucose 135 H (74-99) mg/dL Assessment and Plan (1) Constipation Current Visit: Yes Status: Acute Priority: High Code(s): K59.00 - CONSTIPATION, UNSPECIFIED SNOMED Code(s): 39253088 (2) Abdominal mass Current Visit: Yes Status: Acute Priority: High Code(s): R19.00 - INTRA- ABD AND PELVIC SWELLING, MASS AND LUMP, UNSP SITE SNOMED Code(s): 359714857 (3) Abdominal pain Current Visit: Yes Status: Acute Priority: High Code(s): R10.9 - UNSPECIFIED ABDOMINAL PAIN SNOMED Code(s): 90851631 (4) Hypernatremia Current Visit: Yes Status: Acute Priority: Medium Code(s): E87.0 - HYPEROSMOLALITY AND HYPERNATREMIA SNOMED Code(s): 28126777 (5) Ileus Current Visit: Yes Status: Acute Priority: High Code(s): K56.7 - ILEUS, UNSPECIFIED SNOMED Code(s): 085241295 (6) Pancreatic mass Current Visit: Yes Status: Acute Priority: High Code(s): K86.9 - DISEASE OF PANCREAS, UNSPECIFIED SNOMED Code(s): 703575082 (7) Unintentional weight loss Current Visit: Yes Status: Acute Priority: High Code(s): R63.4 - ABNORMAL WEIGHT LOSS SNOMED Code(s): 164624079 Plan: Pt's nausea is improved and fair bowel sounds with passing gases per rectum, recommend for increase oral fluid intake including ENSURE 4 cans per day, increase activity as tolerated, Senna-S BID with fluids and MS-Contin 15mg BID starting this morning and if appetite does not improves than may try MEGACE for couple of weeks. Pt's Hb. is trending down with stable Sodium levels, will check CBC in the morning and if pain better controlled with oral meds and tolerating diet well then he can be discharged home tomorrow with Dr. Gonzales f/u in 1-2 weeks to get his EUS and PANCREATIC biopsy scheduled as an out patient basis. Pt. will also need to see his PCP with-in one week continued supply of narcotic medications.
[2017-09-28] MEDS: MORPHINE SULFATE ER 15 MG TABLET PO SCH ×2 (11:42→20:29)
[2017-09-28] MEDS: SENNOSIDES-DOCUSATE SODIUM 1 EACH TAB PO SCH ×2 (11:43→20:31)
[2017-09-28] MEDS: SODIUM CHLORIDE 0.9% 1,000 ML IV SCH (17:05)
[2017-09-28] MEDS: ONDANSETRON 4 MG/2 ML VIAL IVP PRN (20:33)
[2017-09-28 23:21] VITALS: RESP 16
[2017-09-29] MEDS: MORPHINE SULFATE 4 MG/ML SYRINGE IV PRN (02:33)
[2017-09-29] MEDS: SODIUM CHLORIDE 0.9% 1,000 ML IV SCH (05:50)
[2017-09-29 07:07] LABS: Mean Platelet Volume 6.9; Platelet Count 208 k/uL (150-450)
[2017-09-29 07:12] LABS: INR 1.1 (<1.2); Prothrombin Time 10.5 sec (9.0-12.0)
[2017-09-29] MEDS: ENOXAPARIN 40 MG/0.4 ML SYRINGE SQ SCH (09:21)
[2017-09-29] MEDS: METOCLOPRAMIDE 10 MG TAB PO SCH ×2 (09:21→17:29)
[2017-09-29] MEDS: FAMOTIDINE 20 MG TAB PO SCH (09:22)
[2017-09-29] MEDS: MORPHINE SULFATE ER 15 MG TABLET PO SCH ×2 (09:23→20:55)
[2017-09-29] MEDS: SENNOSIDES-DOCUSATE SODIUM 1 EACH TAB PO SCH ×2 (09:24→20:59)
[2017-09-29] MEDS ORDERED: BISACODYL 10 MG SUPP RECTAL STA (09:25)
--- NOTE | 2017-09-29 11:36 | CDI ---
Last Revision, April 2017 Documentation Clarification Form Date: 09/29/17 1128 From: Chioma Harkins RN, CCDS Admit Date: 09/26/2017 12:49:00 PM Patient Name: Hari Gomez Visit Number: [id number] ATTENTION: The Clinical Documentation Specialists (CDI) and [facility] Coding Staff appreciate your assistance in clarifying documentation. Please respond to the clarification below the line at the bottom and electronically sign. The CDI & [facility] Coding staff will review the response and follow-up if needed. Please note: Queries are made part of the Legal Health Record. If you have any questions, please contact the author of this message via ITS. Dr. Leslie Quiñones History/Risk Factors: 5 Lb weight loss x 1 week, newly diagnosis pancreatic mass Clinical Indicators: 09/26 Surgical Consult: "moderate distress, cachectic, chronically ill." Dietary has documented "malnutrition" 09/28 Attending Progress Note: "unintentional weight loss." Patients weight is 39.9 Kg Patients height is 63 in Calculated BMI is 15.6 09/26 H&P: Skin care/assessment: "Skin: Normal temperature, tone, texture, turgor , No induration No subcutaneous nodules, No rash, lesions, No ulcers." Diagnostic tests: CT AP: pancreatic mass, hydropic gallbladder, lytic lesions in pelvis Treatments: 09/28 Attending Progress Note: recommend for increase oral fluid intake including ENSURE 4 cans per day, increase activity as tolerated, Daily weights per unit protocol Nutritional Education: Provided 09/26 and 09/29 Dietary Consult: completed 09/26 & 09/29 Possible infusion: 1 L IVF Bolus followed by 50 cc/hr Administration of supplements: Ensure clear TID In order to capture the severity of condition associated with patient BMI of 15.6, a clinical diagnoses needs to be documented by the physician. Please clarify: Protein Calorie Malnutrition, (further specify severity - Mild, Moderate, Severe ) Emaciated Cachexia Underweight Protein Calorie Malnutrition, (further specify severity - Mild, Moderate, Severe ) Other Unable to determine Please continue to document in your progress notes and discharge summary in order to capture severity of illness and risk of mortality. Include clinical findings that support your diagnosis. severe protein calorie malnutrition MTDD
--- NOTE | 2017-09-29 12:04 | XR ---
2 view Abdomen HISTORY: Follow-up ileus 2 views of the abdomen Comparison to CT abdomen pelvis 09/26/2017 Lung bases are clear. There is no evident pneumoperitoneum or bowel obstruction. Surgical clips are p resent in left the abdomen. Air-filled loops of colon are noted. No definite distention. There is a p hlebolith in the right pelvis. IMPRESSION: No significant abnormality is evident.
[2017-09-29 15:18] VITALS: TEMP 98.1
[2017-09-29] MEDS: ONDANSETRON 4 MG/2 ML VIAL IVP PRN ×2 (15:28→20:56)
--- NOTE | 2017-09-29 16:38 | P.PN ---
Progress Note - Text Progress Note Date: 09/29/17 The patient remained stable over the weekend. He has not better pain control. He is currently drinking his protein drinks. He was originally scheduled for a CT-guided biopsy however this is unchanged an endoscopic ultrasound with possible biopsy. On exam is lesser stable. His abdomen soft. There is mild epigastric pain. Newly diagnosed pancreatic mass. Patient was discharged home per medicine he will follow-up Dr. Gonzales as an outpatient after his endoscopic ultrasound biopsy has been performed.
[2017-09-29] MEDS: MORPHINE ORAL SOLN 10 MG/5 ML CUP PO PRN (17:23)
--- NOTE | 2017-09-29 22:24 | P.PN ---
Subjective Progress Note Date: 09/29/17 The pt 's pain is much better controlled. He is still constipated. His PO intake is improved Objective - Vital Signs Vital signs: Vital Signs Temp 98.1 F 09/29/17 21:20 Pulse 106 H 09/29/17 21:20 Resp 16 09/29/17 21:20 BP 135/66 09/29/17 21:20 Pulse Ox 96 09/29/17 21:20 Intake & Output 09/29/17 09/29/17 09/30/17 06:59 18:59 06:59 Intake Total 1165 400 590 Output Total 975 300 Balance 190 400 290 Weight 39.916 kg Intake: Intake, IV Titration 575 Amount Sodium Chloride 0.9% 1, 575 000 ml @ 50 mls/hr IV . Q20H [facility] Rx#:[id number] Oral 590 400 590 Output: Urine 975 300 Other: Voiding Method Toilet Toilet Urinal Urinal # Voids 2 # Bowel Movements 0 - Constitutional General appearance: Present: no acute distress - EENT Eyes: Present: PERRLA ENT: Present: normal oropharynx - Respiratory Respiratory: bilateral: CTA - Cardiovascular Rhythm: regular Heart sounds: normal: S1, S2 - Gastrointestinal General gastrointestinal: Present: soft Localized gastrointestinal: tender: epigastric periumbilical - Integumentary Integumentary: Present: normal - Neurologic Neurologic: Present: CNII-XII intact - Musculoskeletal Musculoskeletal: Present: generalized weakness, strength equal bilaterally - Psychiatric Psychiatric: Present: A&O x's 3, appropriate affect - Labs CBC & Chem 7: 09/29/17 06:44 09/28/17 09:31 Assessment and Plan (1) Pancreatic mass Narrative/Plan: Ca 19-9 was elevated in the 230 range. So far, there is no definite evidence of metastatic disease, with Ct chest showing a non specific sub cm nodule in the LLL. The pt is to be set for an outpt EUS and biopsy at [facility]. The office will call [facility] today to set up the same, as well as referral to surgical oncology Current Visit: Yes Status: Acute Priority: High Code(s): K86.9 - DISEASE OF PANCREAS, UNSPECIFIED SNOMED Code(s): 508774590 (2) Abdominal pain Narrative/Plan: The pt was started on MS contin by IM, with good control. His requirement of breakthrough meds has been quite minimal. He can thus be discharged on MS contin , and either Roxanol or [place] for breakthrough Current Visit: Yes Status: Acute Priority: High Code(s): R10.9 - UNSPECIFIED ABDOMINAL PAIN SNOMED Code(s): 88228647 (3) Ileus Narrative/Plan: Clinically abdomen was not distended. Check AXR. He is on Reglan and senokot. I will add one time dulcolax supp Current Visit: Yes Status: Acute Priority: High Code(s): K56.7 - ILEUS, UNSPECIFIED SNOMED Code(s): 172616112
[2017-09-30] MEDS: SODIUM CHLORIDE 0.9% 1,000 ML IV SCH (02:48)
[2017-09-30] MEDS: MORPHINE ORAL SOLN 10 MG/5 ML CUP PO PRN ×2 (02:48→07:54)
--- NOTE | 2017-09-30 03:14 | P.CONS ---
History of Present Illness - Reason for Consult Consult date: 09/28/17 Pancreatic mass - History of Present Illness The patient is a 77-year-old male who presented with history of back pain of recent onset. The patient also reported nausea and 5-6 pound weight loss. Denied jaundice, fever or chills. He has been on the constipated side. CT of the abdomen showed cystic mass in the body of the pancreas with possible thrombosis of the splenic vein. The patient is admitted for management of his symptoms and for further diagnostic studies and subsequent intervention as applicable. The patient has been evaluated by oncology services and the recommendation has pain for outpatient endoscopic ultrasound to assess for local involvement and to obtain biopsies. His pain has been managed at this time with narcotics and his constipation is being addressed as well. Review of Systems Constitutional: Denied fever, chills and unintentional weight loss Neurologic: No headaches, double vision or any sensory or motor changes Cardiopulmonary: No chest pains, shortness of breath or palpitations Gastrointestinal: See present illness above Genitourinary: No hematuria, dysuria or frequency Endocrine: No diabetes or thyroid disease Musculoskeletal: History of osteoarthritis Skin: No rashes Hematologic: No anemia or bleeding tendency Psychiatric: No anxiety or depression Past Medical History Past Medical History: Osteoarthritis (OA) Additional Past Medical History / Comment(s): Hypoglycemia-eats frequent small meals, 1983 duodenal ulcer with surgery, 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 History of Any Multi-Drug Resistant Organisms: None Reported Additional Past Surgical History / Comment(s): left kidney removed, doudenal ulcer repair, colonoscopy with 2 benign polyps removed. Additional Past Anesthesia/Blood Transfusion Reaction / Comm: Pt has been hypotensive after surgery. Smoking Status: Former smoker - Past Family History Father Family Medical History: Cancer Additional Family Medical History / Comment(s): Father had back problems from an injury. He had cancer in his lymph nodes that went to his brain. Mother Additional Family Medical History / Comment(s): Mother had mental health problems, possible schizophrenia. Medications and Allergies Home Medications Medication Instructions Recorded Confirmed Type Acetaminophen Tab [Tylenol Tab] 500 - 1,000 mg PO Q6HR PRN 09/26/17 09/26/17 History Acetaminophen-Codeine 300-30mg 1 - 2 tab PO Q4-6H PRN 05/11/18 05/11/18 History [Tylenol w/codeine #3] Cimetidine [Tagamet] 300 mg PO BID 09/26/17 09/26/17 History Cyclobenzaprine [Flexeril] 5 mg PO TID PRN 09/26/17 09/26/17 History Allergies Allergy/AdvReac Type Severity Reaction Status Date / Time Penicillins Allergy Anaphylaxis Verified 09/26/17 10:12 Physical Exam Vitals: Vital Signs Temp Pulse Resp BP Pulse Ox 09/28/17 06:17 98.9 F 101 H 16 135/60 96 09/27/17 22:50 97.9 F 91 16 164/75 97 09/27/17 15:43 85 16 09/27/17 15:00 97.7 F 86 16 161/77 96 Intake and Output 09/27/17 09/28/17 09/28/17 22:59 06:59 14:59 Intake Total 175 Output Total 500 Balance 175 -500 Intake: Intake, IV Titration 175 Amount Sodium Chloride 0.9% 1, 175 000 ml @ 50 mls/hr IV . Q20H [facility] Rx#:[id number] Output: Urine 500 Other: Voiding Method Toilet Toilet Toilet Urinal Urinal Urinal # Voids 1 Weight 39.916 kg General: Appears stated age, very pleasant, in no acute distress Head and neck: Normocephalic and atraumatic, conjunctivae pink and sclerae not icteric, mucous membranes moist and pink. No masses in the neck or tracheal shifts Lungs: Clear to auscultation with no dullness to percussion Heart: Regular, no abnormal sounds, murmurs, gallops or friction rubs abdomen: Soft, no masses or organomegalies. No tenderness. Bowel sounds present Extremities: No clubbing, cyanosis or edema Neurologic: Alert and oriented 3. 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 Constipation secondary to pain medications. Plan: Agree with your current management. Patient will be scheduled for endoscopic ultrasound as outpatient for tissue diagnosis and further evaluation of the extent of this mass. Further plans can then be made including possible candidacy for Whipple surgery. I will discuss with you and follow with you with interest.
[2017-09-30 07:54] VITALS: BP 145/73; PULSE 101
[2017-09-30] MEDS: METOCLOPRAMIDE 10 MG TAB PO SCH (07:56)
[2017-09-30] MEDS ORDERED: FAMOTIDINE 20 MG TAB PO SCH (09:00)
[2017-09-30] MEDS: MORPHINE SULFATE ER 15 MG TABLET PO SCH (09:14)
[2017-09-30] MEDS: SENNOSIDES-DOCUSATE SODIUM 1 EACH TAB PO SCH (09:14)
[2017-09-30] MEDS: ONDANSETRON 4 MG/2 ML VIAL IVP PRN (09:14)
[2017-09-30] MEDS: ENOXAPARIN 40 MG/0.4 ML SYRINGE SQ SCH (09:15)
[2017-09-30] MEDS ORDERED: MORPHINE ORAL SOLN 10 MG/5 ML CUP PO PRN ×2 (10:10→10:12)
--- NOTE | 2017-09-30 13:00 | P.PN ---
Subjective Progress Note Date: 09/30/17 Principal diagnosis: pancreatic mass patient still with poor appetite, no vomitng,no fever Objective - Vital Signs Vital signs: Vital Signs Temp 98.1 F 09/30/17 07:37 Pulse 101 H 09/30/17 07:37 Resp 16 09/30/17 07:37 BP 145/73 09/30/17 07:37 Pulse Ox 96 09/30/17 07:37 Intake & Output 09/29/17 09/30/17 09/30/17 18:59 06:59 18:59 Intake Total 400 1690 Output Total 900 Balance 400 790 Weight 39.916 kg Intake: Intake, IV Titration 650 Amount Sodium Chloride 0.9% 1, 650 000 ml @ 50 mls/hr IV . Q20H [facility] Rx#:[id number] Oral 400 1040 Output: Urine 900 Other: Voiding Method Toilet Toilet Toilet Urinal Urinal Urinal # Voids 2 # Bowel Movements 0 - Exam gen:alert and oriented lungs:clear to auscultation heart:s1s2 abdomen:soft and depressible,non tender ext:no edema - Labs CBC & Chem 7: 09/29/17 06:44 09/28/17 09:31 Assessment and Plan (1) Pancreatic mass Narrative/Plan: needs endoscopic ultrasound Current Visit: Yes Status: Acute Priority: High Code(s): K86.9 - DISEASE OF PANCREAS, UNSPECIFIED SNOMED Code(s): 749090678 (2) Constipation Narrative/Plan: no bowel movements Current Visit: Yes Status: Acute Priority: High Code(s): K59.00 - CONSTIPATION, UNSPECIFIED SNOMED Code(s): 46366219 (3) Unintentional weight loss Narrative/Plan: Oral intake is very low and minimal. Current Visit: Yes Status: Acute Priority: High Code(s): R63.4 - ABNORMAL WEIGHT LOSS SNOMED Code(s): 347188478 Plan: We are trying to make arrangements for patient to be transferred to [facility].
--- NOTE | 2017-09-30 14:54 | P.PN ---
Subjective Progress Note Date: 09/30/17 Principal diagnosis: pancreatic mass Pt seen today in follow up with daughter and son-in-law at the bedside. Pt is drowsy, eyes closed during conversation but, able to slowly and softly answer a few questions, his states pain is controlled but all he does is sleep, he is not getting out of bed. Daughter reports better appetite on zofran then reglan. No documented fevers, emesis or BM. Objective - Vital Signs Vital signs: Vital Signs Temp 98.1 F 09/30/17 07:37 Pulse 101 H 09/30/17 07:37 Resp 16 09/30/17 07:37 BP 145/73 09/30/17 07:37 Pulse Ox 96 09/30/17 07:37 Intake & Output 09/29/17 09/30/17 09/30/17 18:59 06:59 18:59 Intake Total 400 1690 Output Total 900 Balance 400 790 Weight 39.916 kg Intake: Intake, IV Titration 650 Amount Sodium Chloride 0.9% 1, 650 000 ml @ 50 mls/hr IV . Q20H [facility] Rx#:[id number] Oral 400 1040 Output: Urine 900 Other: Voiding Method Toilet Toilet Toilet Urinal Urinal Urinal # Voids 2 # Bowel Movements 0 - Constitutional Constitutional Comment(s): family states baseline weight for pt is about 100lbs frail and cachetic looking General appearance: Present: cooperative, thin - Respiratory Respiratory: bilateral: CTA (weak inspiratory effort) - Cardiovascular Rhythm: regular Heart sounds: normal: S1, S2 - Gastrointestinal General gastrointestinal: Present: normal bowel sounds - Integumentary Integumentary Comment(s): bronzed skin color - Musculoskeletal Musculoskeletal: Present: generalized weakness - Psychiatric Psychiatric Comment(s): drowsy - Labs CBC & Chem 7: 09/29/17 06:44 09/28/17 09:31 Assessment and Plan (1) Pancreatic mass Current Visit: Yes Status: Acute Priority: High Code(s): K86.9 - DISEASE OF PANCREAS, UNSPECIFIED SNOMED Code(s): 460703807 Plan: Case was discussed with family, Attending, Dr. Gonzales and Case Management. Plan is to transfer to [facility] for EUS and biopsy as the pt will benefit from having this procedure RONNI for diagnosis and plan of care. It is felt from the evidence so far, that if pt has a primary pancreatic malignancy he could be a candidate for surgical intervention. Did speak to [facility] transfer team, pt will be admitted to medicine, consult for procedures and then Surgical consult if appropriate. Pt ok to be discharged to [facility] when bed available
--- NOTE | 2017-09-30 15:58 | P.DS ---
Providers Date of admission: 09/26/17 12:49 Expected date of discharge: 09/30/17 Attending physician: Daniella Price MD Consults: 09/26/17 14:02 Consult Physician Routine Consulting Provider: Familia Dominguez Consult Reason/Comments: pancreatic mass Do you want consulting provider notified?: Yes Consult Physician Routine Consulting Provider: Sixto Gonzales Consult Reason/Comments: pancreatic mass Do you want consulting provider notified?: Yes Primary care physician: Joe Lopez - Discharge Diagnosis(es) (1) Pancreatic mass Status: Acute Priority: High (2) Constipation Status: Acute Priority: High (3) Unintentional weight loss Status: Acute Priority: High Hospital Course: This is a 77-year-old male that came in with unintentional weight loss and loss of appetite and dehydration. Patient was hydrated with IV fluids. His computed tomography scan of the abdomen showed evidence of a pancreatic mass. Patient will need endoscopic ultrasound for biopsy. For this reason patient was transferred to [facility]. Patient with very poor appetite and minimal oral intake Patient Condition at Discharge: Stable Plan - Discharge Summary Discharge Rx Participant: No New Discharge Prescriptions: No Action Cyclobenzaprine [Flexeril] 5 mg PO TID PRN PRN Reason: Muscle Spasm Cimetidine [Tagamet] 300 mg PO BID Acetaminophen-Codeine 300-30mg [Tylenol w/codeine #3] 1 - 2 tab PO Q4-6H PRN PRN Reason: Pain Acetaminophen Tab [Tylenol Tab] 500 - 1,000 mg PO Q6HR PRN PRN Reason: Pain Discharge Medication List Acetaminophen Tab [Tylenol Tab] 500 - 1,000 mg PO Q6HR PRN 09/26/17 [History] Acetaminophen-Codeine 300-30mg [Tylenol w/codeine #3] 1 - 2 tab PO Q4-6H PRN 04/05 [History] Cimetidine [Tagamet] 300 mg PO BID 09/26/17 [History] Cyclobenzaprine [Flexeril] 5 mg PO TID PRN 09/26/17 [History] Follow up Appointment(s)/Referral(s): Joe Lopez DO [Primary Care Provider] - 1-2 days Activity/Diet/Wound Care/Special Instructions: [facility]: #[phone] Discharge Disposition: TRANSFER TO SHORT TERM HOSP
[2017-09-30] MEDS ORDERED: ONDANSETRON 4 MG TAB PO SCH (16:00)
== END 2017-09-30 15:45 | disposition short-term general hospital (02) | DRG 438 ==
LOC: EC 09:46 → 5ONC 12:49
PROVIDERS: ADMIT Internal Medicine; ATTEND Internal Medicine
DX: K86.89 Other specified diseases of pancreas (principal); E43 Unspecified severe protein-calorie malnutrition; E87.0 Hyperosmolality and hypernatremia; K56.7 Ileus, unspecified; K82.1 Hydrops of gallbladder; Z68.1 Body mass index [BMI] 19.9 or less, adult; E11.9 Type 2 diabetes mellitus without complications; K59.03 Drug induced constipation; T40.605A Adverse effect of unspecified narcotics, initial encounter; M19.90 Unspecified osteoarthritis, unspecified site; R19.00 Intra-abdominal and pelvic swelling, mass and lump, unspecified site; I10 Essential (primary) hypertension; E86.0 Dehydration; Z87.11 Personal history of peptic ulcer disease; Z87.19 Personal history of other diseases of the digestive system; Z87.891 Personal history of nicotine dependence; Z79.899 Other long term (current) drug therapy; Z80.7 Family history of other malignant neoplasms of lymphoid, hematopoietic and related tissues; Z88.0 Allergy status to penicillin; Z80.8 Family history of malignant neoplasm of other organs or systems; Z81.8 Family history of other mental and behavioral disorders
CPT/HCPCS: 36415; 71046; 71260; 74019; 74177; 80048; 80053; 81001; 82150; 83690; 84484; 85025; 85027; 85049; 85610; 85730; 86301; 93005; 96361; 96374; 99285